=== PATIENT | male | born 1985 | race Two or more races ===

== ENCOUNTER 2023-09-25 16:27 | Emergency (ER) | payer SELFPAY ==
[~2023-09-25] VITALS: Ht 182.9 cm; Wt 110.0 kg
[2023-09-25] MEDS: ACETAMINOPHEN 500 MG TAB PO ONE (17:19)
[2023-09-25 18:54] VITALS: BP 140/80; PULSE 92; RESP 16; TEMP 98.7; O2SAT 96
[2023-09-25] MEDS: diphenhdrAMINE HCL 50 MG/1 ML VL IM ONE (20:10)
[2023-09-25] MEDS: PROCHLORPERAZINE EDISYLATE 5 MG/ML 2ML VIAL IM ONE (20:10)
[2023-09-25] MEDS: DexAMETHasone SOD PHOS 10MG/1ML VIAL INJ IM ONE (20:10)
[2023-09-25] MEDS: KETOROLAC TROMETH 60MG/2ML VIAL IM ONE (20:10)
== END 2023-09-25 20:19 | disposition home or self-care (01) ==
LOC: ER 16:27
DX: G43.909 Migraine, unspecified, not intractable, without status migrainosus (principal)
CPT/HCPCS: 99282; J0780; J1100; J1200; J1885